=== PATIENT | female | born 1995 | race Caucasian/White ===

== ENCOUNTER → 2016-07-27 | Outpatient (REF) | payer BC | LOC: M SFHCWAGY 15:45 | PROVIDERS: ATTEND Nurse Practitioner Family | DX: Z12.4 Encounter for screening for malignant neoplasm of cervix (principal) ==

== ENCOUNTER → 2017-08-02 | Outpatient (REF) | payer BC ==
[2017-08-02 21:19] LABS: CHLAMYDIA DNA AMPLIFICATION NEGATIVE (NEGATIVE); GC DNA AMPLIFICATION NEGATIVE (NEGATIVE)
== END ==
LOC: M SFHCWAGY 15:32
DX: Z01.419 Encounter for gynecological examination (general) (routine) without abnormal findings (principal); R87.612 Low grade squamous intraepithelial lesion on cytologic smear of cervix (LGSIL)
CPT/HCPCS: 87591

== ENCOUNTER → 2018-02-21 | Outpatient (REF) | payer BC ==
[2018-02-21 21:14] LABS: CHLAMYDIA DNA AMPLIFICATION NEGATIVE (NEGATIVE); GC DNA AMPLIFICATION NEGATIVE (NEGATIVE)
[2018-02-22 11:20] LABS: HIV 1&2 SCREEN CENTAUR NEGATIVE (NEGATIVE)
== END ==
LOC: M SFHCWAGY 14:13
DX: Z11.4 Encounter for screening for human immunodeficiency virus [HIV] (principal); Z11.3 Encounter for screening for infections with a predominantly sexual mode of transmission
CPT/HCPCS: 36415

== ENCOUNTER → 2018-08-08 | Outpatient (REF) | payer BC ==
[2018-08-08 21:00] LABS: CHLAMYDIA DNA AMPLIFICATION NEGATIVE (NEGATIVE); GC DNA AMPLIFICATION NEGATIVE (NEGATIVE)
== END ==
LOC: M SFHCWAGY 15:25
PROVIDERS: ATTEND Nurse Practitioner Family
DX: Z12.4 Encounter for screening for malignant neoplasm of cervix (principal)
CPT/HCPCS: 87491; 87591; G0123

== ENCOUNTER → 2019-08-14 | Outpatient (REF) | payer BC | LOC: M SFHCWAGY 09:46 | PROVIDERS: ATTEND Nurse Practitioner Family | DX: Z12.4 Encounter for screening for malignant neoplasm of cervix (principal); R87.610 Atypical squamous cells of undetermined significance on cytologic smear of cervix (ASC-US) | CPT/HCPCS: 87624; G0123 ==

== ENCOUNTER → 2019-10-29 | Outpatient (REF) | payer BC | LOC: M LAB REF 18:29 | PROVIDERS: ATTEND Dermatology | DX: D22.121 Melanocytic nevi of left upper eyelid, including canthus (principal); D22.5 Melanocytic nevi of trunk ==

== ENCOUNTER → 2020-01-22 | Outpatient (REF) | payer BC ==
[2020-01-23 12:07] LABS: BLOOD UREA NITROGEN 13 MG/DL (7-18); CALCIUM LEVEL 8.9 MG/DL (8.5-10.1); CARBON DIOXIDE LEVEL 28 MEQ/L (21-32); CHLORIDE LEVEL 107 MEQ/L (98-107); GLOMERULAR FILTRATION RATE > 60.0 (>60); GLUCOSE, FASTING 104 MG/DL (70-100); POTASSIUM SERUM 4.2 MEQ/L (3.5-5.1); SODIUM LEVEL 141 MEQ/L (136-145)
== END ==
LOC: M SFHCCLAY 15:09
PROVIDERS: ATTEND Family Medicine
DX: F41.9 Anxiety disorder, unspecified (principal)

== ENCOUNTER → 2020-09-16 | Outpatient (REF) | payer BC | LOC: M SFHCWAGY 17:10 | PROVIDERS: ATTEND Nurse Practitioner Family | DX: Z12.4 Encounter for screening for malignant neoplasm of cervix (principal) ==

== ENCOUNTER 2021-02-22 08:02 | Emergency (ER) | payer BC, SELFPAY ==
[~2021-02-22] VITALS: Ht 170.2 cm; Wt 81.4 kg
[2021-02-22] MEDS ORDERED: PRENTAB53 PO (08:08)
[2021-02-22] MEDS ORDERED: FOLI400T13 PO (08:08)
[2021-02-22 09:44] LABS: BASO % 0.4 % (0.0-1.0); EOS # 0.1 10^3/uL (0.0-0.5); EOS % 0.9 % (0.0-3.0); HEMATOCRIT 40.4 % (36.0-47.0); HEMOGLOBIN 13.9 g/dl (12.0-15.5); LYMPH # 1.3 10^3/uL (1.5-5.0); LYMPH % 24.4 % (24.0-44.0); MEAN CORPUSCULAR HEMOGLOBIN 31.8 pg (27.0-33.0); MEAN CORPUSCULAR HGB CONC 34.4 g/dl (32.0-36.5); MEAN CORPUSCULAR VOLUME 92.4 fl (80.0-96.0); MONO # 0.4 10^3/uL (0.0-0.8); MONO % 6.8 % (2.0-8.0); NEUTROPHILS # 3.6 10^3/uL (1.5-8.5); NEUTROPHILS % 67.1 % (36.0-66.0); PLATELET COUNT, AUTOMATED 167 10^3/uL (150-450); RED BLOOD COUNT 4.37 10^6/uL (4.00-5.40); WHITE BLOOD COUNT 5.3 10^3/uL (4.0-10.0)
[2021-02-22 10:35] LABS: ALT/SGPT 22 U/L (12-78); BILIRUBIN,DIRECT 0.1 MG/DL (0.0-0.2); BILIRUBIN,TOTAL 0.4 MG/DL (0.2-1.0); BLOOD UREA NITROGEN 13 MG/DL (7-18); CALCIUM LEVEL 8.8 MG/DL (8.5-10.1); CARBON DIOXIDE LEVEL 27 MEQ/L (21-32); CHLORIDE LEVEL 107 MEQ/L (98-107); CREATININE FOR GFR 0.64 MG/DL (0.55-1.30); GLOMERULAR FILTRATION RATE > 60.0 (>60); GLUCOSE, FASTING 93 MG/DL (70-100); HCG, SERUM QUANTITATIVE 1098 MIU/ML; LIPASE 137 U/L (73-393); POTASSIUM SERUM 3.9 MEQ/L (3.5-5.1); SODIUM LEVEL 138 MEQ/L (136-145); TOTAL PROTEIN 7.4 GM/DL (6.4-8.2)
--- NOTE | 2021-02-22 11:47 | REP ---
INDICATION: pelvic pain into back, ro exctopic. COMPARISON: None. TECHNIQUE: Multiple sonographic images of the uterus and pelvis with transabdominal, endovaginal and Doppler ultrasound. FINDINGS: By LMP of 01/22/2021 the gestational age is 4 weeks 3 days. Patient reportedly has an hCG of 1096 units. The uterus is anteverted. There is a tiny 2.4 mm round hypoechogenic structure in the endometrial canal, possibly an early gestational sac. At this size the gestational age would be 4 weeks 5 days. Right ovary: The right ovary measures 2.4 x 1.7 x 1.3 cm and is normal size. There is no dominant mass or cyst. Left ovary: There is a slightly hypoechoic zone in the left ovary measuring 2.3 x 1.5 x 2.4 cm. There is a complex cystic zone within the left ovary measuring 2.3 x 1.7 x 1.9 cm. The left ovary is overall normal size measuring 3.5 x 2.3 x 3.1 cm. There is vascular flow in both ovaries with the Doppler resistive index of the parenchymal arteries in the right ovary measuring 0.51 left ovary 0.50. IMPRESSION: Questionable tiny intrauterine gestational sac as discussed above. There is no identifiable pole or yolk sac at this time. Follow-up is recommended. There are 2 complex cysts in the left ovary as described. A because the intrauterine gestation is only questionable at this time, ectopic gestation is not entirely excluded. Follow-up is recommended. <Electronically signed by Ry Jordan > 02/22/21 [id number]
[2021-02-22 13:02] VITALS: BP 95/52
== END 2021-02-22 13:06 | disposition home or self-care (01) ==
LOC: M ED 08:02
DX: O34.81 Maternal care for other abnormalities of pelvic organs, first trimester (principal); Z3A.01 Less than 8 weeks gestation of pregnancy

== ENCOUNTER → 2021-03-08 | Outpatient (CLI) | payer BC ==
[~2021-03-08] MED LIST: FOLI400T13 PO; PRENTAB53 PO
--- NOTE | 2021-03-08 08:43 | REP ---
INDICATION: 1ST TRIMESTER ABD PAIN COMPARISON: 02/22/2021 TECHNIQUE: Transabdominal 1st trimester obstetrical ultrasound with color Doppler evaluation. FINDINGS: Single live early intrauterine is appreciated. Gestational sac with yolk sac and pole identified. [place]-rump length of 5 mm corresponds to 6 weeks 1 day gestational age with estimated date of delivery 10/31/2021. heart rate equals 118 beats per minute. No gross abnormalities are identified. Maternal ovaries are normal in appearance and vascularity without evidence for torsion. IMPRESSION: Single live early intrauterine at 6 weeks 1 day gestational age. Complete anatomical assessment should be performed and 19-20 weeks. <Electronically signed by Ajit Ivey > 03/08/21 [id number]
== END ==
LOC: M RAD 07:34
PROVIDERS: ATTEND Physician Assistant Medical
DX: O26.899 Other specified pregnancy related conditions, unspecified trimester (principal); Z3A.01 Less than 8 weeks gestation of pregnancy

== ENCOUNTER → 2021-04-22 | Outpatient (CLI) | payer BC | LOC: M LAB 12:10 | PROVIDERS: ATTEND Advanced Practice Midwife | DX: Z34.81 Encounter for supervision of other normal pregnancy, first trimester (principal); Z36.89 Encounter for other specified antenatal screening ==

== ENCOUNTER → 2021-04-22 | Outpatient (CLI) | payer BC ==
[2021-04-22 13:52] LABS: HEMOGLOBIN 12.9 g/dl (12.0-15.5); MEAN CORPUSCULAR HEMOGLOBIN 31.9 pg (27.0-33.0); MEAN CORPUSCULAR HGB CONC 33.9 g/dl (32.0-36.5); MEAN CORPUSCULAR VOLUME 93.8 fl (80.0-96.0); PLATELET COUNT, AUTOMATED 176 10^3/uL (150-450); RED BLOOD COUNT 4.05 10^6/uL (4.00-5.40); WHITE BLOOD COUNT 8.7 10^3/uL (4.0-10.0)
[2021-04-22 15:38] LABS: GC DNA AMPLIFICATION NEGATIVE (NEGATIVE)
[2021-04-22 15:58] LABS: HIV 1&2 SCREEN CENTAUR NEGATIVE (NEGATIVE)
== END ==
LOC: M LAB 12:06
PROVIDERS: ATTEND Advanced Practice Midwife
DX: Z34.01 Encounter for supervision of normal first pregnancy, first trimester (principal); Z36.89 Encounter for other specified antenatal screening

== ENCOUNTER → 2021-06-16 | Outpatient (CLI) | payer BC ==
--- NOTE | 2021-06-16 09:05 | REP ---
INDICATION: ANATOMY COMPARISON: 03/08/2021 TECHNIQUE: Transabdominal obstetrical ultrasound with color Doppler evaluation. FINDINGS: Examination demonstrates a single live intrauterine in cephalic presentation. motion is identified by technologist. Placenta is noted anterior and grade 1 without evidence for placenta previa or abruption. Amniotic fluid volume is normal. Cervix measures 3.6 cm in length and appears closed.. Selected gestational age: 20 weeks 5 days with NIA 10/29/2021. Gestational age by current measurements 21 weeks 4 days with NIA 10/23/2021. FHR equals 136 beats per minute. BPD: 5.0 cm; 21 weeks 2 days; 65th percentile HC: 19.3 cm; 21 weeks 4 days; 74th percentile AC: 16.4 cm; 21 weeks 3 days; 65th percentile FL: 3.5 cm; 21 weeks 1 day; 62nd percentile HL: 3.6 cm; 22 weeks 3 days; 78th percentile HC/AC: 1.18 Estimated weight 417 grams (78thpercentile). Anatomical assessment demonstrates normal structures including cranium, choroid plexus, cavum, cerebellum/posterior fossa, facial features, lungs, four-chamber heart/ventricular outflow tracts, diaphragm, stomach, cord insertion/three-vessel cord, kidneys/bladder, spine, and extremities. IMPRESSION: Single live intrauterine in cephalic presentation demonstrating appropriate estimated weight. Anatomical assessment is complete and normal. <Electronically signed by Ajit Ivey > 06/16/21 [id number]
== END ==
LOC: M WHC 07:02
PROVIDERS: ATTEND Advanced Practice Midwife
DX: Z34.02 Encounter for supervision of normal first pregnancy, second trimester (principal); Z36.89 Encounter for other specified antenatal screening; Z3A.20 20 weeks gestation of pregnancy

== ENCOUNTER → 2021-07-28 | Outpatient (CLI) | payer BC ==
[2021-07-28 17:12] LABS: HEMATOCRIT 36.4 % (36.0-47.0); HEMOGLOBIN 12.3 g/dl (12.0-15.5); MEAN CORPUSCULAR HEMOGLOBIN 32.8 pg (27.0-33.0); MEAN CORPUSCULAR HGB CONC 33.8 g/dl (32.0-36.5); MEAN CORPUSCULAR VOLUME 97.1 fl (80.0-96.0); PLATELET COUNT, AUTOMATED 149 10^3/uL (150-450); RED BLOOD COUNT 3.75 10^6/uL (4.00-5.40); WHITE BLOOD COUNT 8.5 10^3/uL (4.0-10.0)
== END ==
LOC: M PLALAB 14:21
PROVIDERS: ATTEND Advanced Practice Midwife
DX: Z34.02 Encounter for supervision of normal first pregnancy, second trimester (principal); Z36.89 Encounter for other specified antenatal screening
CPT/HCPCS: 36415; 82950; 85027; 86850; 86900; 86901; J2790

== ENCOUNTER → 2021-10-07 | Outpatient (REF) | payer BC | LOC: M PLALAB 08:01 | PROVIDERS: ATTEND Advanced Practice Midwife | DX: Z36.85 Encounter for antenatal screening for Streptococcus B (principal) ==

== ENCOUNTER → 2021-10-13 | Outpatient (CLI) | payer BC | LOC: M RAD 12:12 | PROVIDERS: ATTEND Advanced Practice Midwife | DX: O26.843 Uterine size-date discrepancy, third trimester (principal); Z3A.37 37 weeks gestation of pregnancy; O36.63X0 Maternal care for excessive fetal growth, third trimester, not applicable or unspecified ==

== ENCOUNTER → 2022-05-01 | Outpatient (CLI) | payer BC ==
[~2022-05-01] MED LIST changes: +COLA100C5 PO; +ECOT81TA5 PO; +IBUP80TA PO; +PERCOCET PO
== END ==
LOC: M CLY 14:52
PROVIDERS: ATTEND Physician Assistant
DX: M53.3 Sacrococcygeal disorders, not elsewhere classified (principal)

== ENCOUNTER → 2022-09-04 | Outpatient (CLI) | payer BC ==
[2022-09-04 15:51] LABS: HEMATOCRIT 42.7 % (36.0-47.0); HEMOGLOBIN 14.5 g/dl (12.0-15.5); MEAN CORPUSCULAR HEMOGLOBIN 30.6 pg (27.0-33.0); MEAN CORPUSCULAR VOLUME 90.1 fl (80.0-96.0); PLATELET COUNT, AUTOMATED 159 10^3/uL (150-450); RED BLOOD COUNT 4.74 10^6/uL (4.00-5.40)
[2022-09-04 16:30] LABS: ALKALINE PHOSPHATASE 95 U/L (46-116); ALT/SGPT 20 U/L (7.0-40); AST/SGOT 14 U/L (<34); BILIRUBIN,TOTAL 0.7 MG/DL (0.3-1.2); BLOOD UREA NITROGEN 15 MG/DL (9-23); CALCIUM LEVEL 8.8 MG/DL (8.5-10.1); CARBON DIOXIDE LEVEL 30 MMOL/L (20-31); CHLORIDE LEVEL 106 MMOL/L (98-107); CHOLESTEROL LEVEL 188 MG/DL (<200); CHOLESTEROL RISK RATIO 5.31 (<5); CREATININE FOR GFR 0.78 MG/DL (0.55-1.30); GLOMERULAR FILTRATION RATE > 60.0 (>60); GLUCOSE, FASTING 113 MG/DL (60-100); HDL CHOLESTEROL 35.4 MG/DL (>40); LDL CHOLESTEROL 112.4 MG/DL (<100); NON-HDL-C 153 MG/DL; POTASSIUM SERUM 3.7 MMOL/L (3.5-5.1); SODIUM LEVEL 139 MMOL/L (136-145); TOTAL PROTEIN 7.3 G/DL (5.7-8.2); TRIGLYCERIDES LEVEL 201 MG/DL (<150)
[2022-09-04 16:31] LABS: FREE T4 1.01 NG/DL (0.89-1.76); THYROID STIMULATING HORMONE 0.574 uIU/ML (0.55-4.78)
== END ==
LOC: M PLALAB 13:32
PROVIDERS: ATTEND Family Medicine
DX: Z00.00 Encounter for general adult medical examination without abnormal findings (principal)

== ENCOUNTER → 2023-02-14 | Outpatient (REF) | payer BC | LOC: M SFHCWAGY 17:33 | PROVIDERS: ATTEND Nurse Practitioner Family | DX: Z12.4 Encounter for screening for malignant neoplasm of cervix (principal) ==

== ENCOUNTER → 2023-05-02 | Outpatient (CLI) | payer BC ==
[2023-05-02 10:25] LABS: HEMATOCRIT 38.5 % (36.0-47.0); HEMOGLOBIN 13.4 g/dl (12.0-15.5); MEAN CORPUSCULAR HEMOGLOBIN 32.1 pg (27.0-33.0); MEAN CORPUSCULAR HGB CONC 34.8 g/dl (32.0-36.5); MEAN CORPUSCULAR VOLUME 92.3 fl (80.0-96.0); PLATELET COUNT, AUTOMATED 187 10^3/uL (150-450); RED BLOOD COUNT 4.17 10^6/uL (4.00-5.40); WHITE BLOOD COUNT 8.5 10^3/uL (4.0-10.0)
[2023-05-02 13:08] LABS: GC DNA AMPLIFICATION NEGATIVE (NEGATIVE)
[2023-05-02 19:05] LABS: HIV 1&2 SCREEN NEGATIVE (NEGATIVE)
[2023-05-02 19:13] LABS: HEPATITIS C VIRUS ABY INDEX 0.05 INDEX (<0.8)
== END ==
LOC: M LAB 09:23
PROVIDERS: ATTEND Specialist
DX: Z34.81 Encounter for supervision of other normal pregnancy, first trimester (principal)

== ENCOUNTER → 2023-05-18 | Outpatient (CLI) | payer BC | LOC: M PLALAB 15:48 | PROVIDERS: ATTEND Specialist | DX: Z34.01 Encounter for supervision of normal first pregnancy, first trimester (principal) ==

== ENCOUNTER → 2023-07-11 | Outpatient (CLI) | payer BC | LOC: M WHC 11:02 | PROVIDERS: ATTEND Obstetrics & Gynecology | DX: O30.032 Twin pregnancy, monochorionic/diamniotic, second trimester (principal); O32.1XX1 Maternal care for breech presentation, fetus 1; O32.1XX2 Maternal care for breech presentation, fetus 2; Z3A.18 18 weeks gestation of pregnancy ==

== ENCOUNTER → 2023-08-22 | Outpatient (CLI) | payer BC | LOC: M WHC 13:27 | PROVIDERS: ATTEND Specialist | DX: O30.032 Twin pregnancy, monochorionic/diamniotic, second trimester (principal); Z3A.25 25 weeks gestation of pregnancy ==

== ENCOUNTER → 2023-08-22 | Outpatient (CLI) | payer BC ==
[2023-08-22 17:15] LABS: HEMATOCRIT 35.9 % (36.0-47.0); HEMOGLOBIN 12.1 g/dl (12.0-15.5); MEAN CORPUSCULAR HEMOGLOBIN 32.9 pg (27.0-33.0); MEAN CORPUSCULAR HGB CONC 33.7 g/dl (32.0-36.5); MEAN CORPUSCULAR VOLUME 97.6 fl (80.0-96.0); PLATELET COUNT, AUTOMATED 159 10^3/uL (150-450); RED BLOOD COUNT 3.68 10^6/uL (4.00-5.40); WHITE BLOOD COUNT 8.7 10^3/uL (4.0-10.0)
[2023-08-22 18:48] LABS: CHLAMYDIA DNA AMPLIFICATION NEGATIVE (NEGATIVE); GC DNA AMPLIFICATION NEGATIVE (NEGATIVE)
== END ==
LOC: M PLALAB 14:13
PROVIDERS: ATTEND Specialist
DX: O30.032 Twin pregnancy, monochorionic/diamniotic, second trimester (principal)
CPT/HCPCS: 36415; 82950; 85027; 86850; 86900; 86901; 87810; 87850; J2790

== ENCOUNTER 2023-09-06 08:21 | Outpatient (CLI) | payer BC ==
[~2023-09-06] VITALS: Ht 170.2 cm; Wt 105.8 kg
[2023-09-06] MEDS ORDERED: ACET-897 PO (08:42)
[2023-09-06] MEDS ORDERED: HOME MED LIST COMPLETE! XX SCH (08:45)
[2023-09-06 09:02] VITALS: BP 100/53; O2SAT 97
== END 2023-09-06 10:15 | disposition home or self-care (01) ==
LOC: M LDO 08:21
PROVIDERS: ATTEND Obstetrics & Gynecology
DX: O26.892 Other specified pregnancy related conditions, second trimester (principal); N89.8 Other specified noninflammatory disorders of vagina; O30.032 Twin pregnancy, monochorionic/diamniotic, second trimester; O32.1XX1 Maternal care for breech presentation, fetus 1; Z3A.27 27 weeks gestation of pregnancy
CPT/HCPCS: 59025; 76815; G0463

== ENCOUNTER → 2023-09-19 | Outpatient (CLI) | payer BC ==
[~2023-09-19] MED LIST changes: +ACET-897 PO
== END ==
LOC: M RAD 12:55
PROVIDERS: ATTEND Specialist
DX: O30.033 Twin pregnancy, monochorionic/diamniotic, third trimester (principal); Z3A.28 28 weeks gestation of pregnancy

== ENCOUNTER → 2023-10-09 | Outpatient (CLI) | payer BC | LOC: M RAD 13:10 | PROVIDERS: ATTEND Obstetrics & Gynecology | DX: O30.033 Twin pregnancy, monochorionic/diamniotic, third trimester (principal); Z3A.31 31 weeks gestation of pregnancy ==

== ENCOUNTER → 2023-10-18 | Outpatient (CLI) | payer BC | LOC: M WHC 14:09 | PROVIDERS: ATTEND Obstetrics & Gynecology | DX: O30.033 Twin pregnancy, monochorionic/diamniotic, third trimester (principal); Z3A.33 33 weeks gestation of pregnancy ==

== ENCOUNTER → 2023-10-24 | Outpatient (REF) | payer BC | LOC: M SFHCWAGY 15:01 | PROVIDERS: ATTEND Specialist | DX: O30.033 Twin pregnancy, monochorionic/diamniotic, third trimester (principal) ==

== ENCOUNTER → 2023-11-02 | Outpatient (CLI) | payer BC ==
[~2023-11-02] MED LIST changes: +METF500T13 PO
== END ==
LOC: M RAD 14:14
PROVIDERS: ATTEND Obstetrics & Gynecology
DX: O30.033 Twin pregnancy, monochorionic/diamniotic, third trimester (principal); Z3A.35 35 weeks gestation of pregnancy

== ENCOUNTER → 2023-11-09 | Outpatient (REF) | payer BC | LOC: M LAB REF 11:50 | PROVIDERS: ATTEND Physician Assistant | DX: B34.9 Viral infection, unspecified (principal) ==

== ENCOUNTER 2023-11-13 20:44 | Inpatient (IN) | payer BC ==
[~2023-11-13] VITALS: Ht 170.2 cm; Wt 113.4 kg
[2023-11-13] MEDS: ceFAZolin SOD 2 GM in IV 1 EA IV STA (21:02)
[2023-11-13] MEDS ORDERED: OXYTOCIN DRIP 30 UNITS in IV 1 EA IV PRN (21:05)
[2023-11-13] MEDS ORDERED: METHYLERGONOVINE MALEATE 0.2MG/ML 1ML VIAL IM PRN (21:05)
[2023-11-13] MEDS ORDERED: CARBOPROST TROMETHAMINE 250 MCG/ML AMP IM PRN (21:05)
[2023-11-13] MEDS ORDERED: LR 1,000 ML IV SCH ×2 (21:05→23:25)
[2023-11-13] MEDS ORDERED: TRANEXAMIC ACID INJection 1,000 MG in NS 100 ML IV PRN (21:05)
[2023-11-13 21:06] VITALS: BP 138/80
[2023-11-13] MEDS: LACTATED RINGER'S 1000 ML IV STA (21:11)
[2023-11-13] MEDS ORDERED: MORPHINE PRES-FREE INJ 10 MG/10 ML VIAL As Ordered ONE (21:26)
[2023-11-13 21:29] LABS: HEMATOCRIT 32.6 % (36.0-47.0); HEMOGLOBIN 10.7 g/dl (12.0-15.5); MEAN CORPUSCULAR HEMOGLOBIN 28.9 pg (27.0-33.0); MEAN CORPUSCULAR HGB CONC 32.8 g/dl (32.0-36.5); MEAN CORPUSCULAR VOLUME 88.1 fl (80.0-96.0); PLATELET COUNT, AUTOMATED 183 10^3/uL (150-450); WHITE BLOOD COUNT 7.3 10^3/uL (4.0-10.0)
[2023-11-13] MEDS ORDERED: ONDANSETRON 4MG 2ML VIAL As Ordered ONE (21:29)
[2023-11-13] MEDS: BICITRA 30ML SOLN UDC PO ONE (21:31)
[2023-11-13] MEDS ORDERED: AZITHROMYCIN INJ 500MG VIAL As Ordered ONE (22:13)
[2023-11-13 22:22] LABS: HEPATITIS C VIRUS ABY INDEX < 0.02 INDEX (<0.8)
[2023-11-13] MEDS ORDERED: LIDOCAINE 2% INJ 100 MG/5 ML SYRINGE As Ordered ONE (22:32)
[2023-11-13] MEDS ORDERED: PHENYLephrine 500MCG 5ML (100MCG/ML) SYRINGE As Ordered ONE (22:32)
[2023-11-13] MEDS ORDERED: ePHEDrine SULFATE 25 MG/5 ML(5MG/ML) SYRINGE As Ordered ONE (22:32)
[2023-11-13] MEDS ORDERED: ACETAMINOPHEN 1000MG 100ML IV BAG As Ordered ONE (22:37)
[2023-11-13] MEDS ORDERED: OXYTOCIN 30UNITS IN 0.9% NaCl 500ML IV BAG As Ordered ONE (22:41)
[2023-11-13] MEDS ORDERED: KETOROLAC 60MG 2ML VIAL As Ordered ONE (22:56)
[2023-11-13] MEDS ORDERED: AZITHROMYCIN INJ 500 MG, VIAL MATE ADAPTER 1 EACH in NS 250 ML IV ONE (23:00)
[2023-11-13] MEDS: OXYTOCIN DRIP 30 UNITS in IV 1 EA IV SCH (23:15)
[2023-11-13] MEDS ORDERED: NALOXONE INJ 0.4MG/1ML VIAL IV PRN ×2 (23:25)
[2023-11-13] MEDS ORDERED: METOCLOPRAMIDE INJ 10MG/2ML VIAL IV PRN (23:25)
[2023-11-13] MEDS ORDERED: **NOTE PATIENT COMMENT** MISC XX SCH (23:25)
[2023-11-13] MEDS ORDERED: ONDANSETRON 4MG 2ML VIAL IV PRN (23:25)
[2023-11-13] MEDS ORDERED: fentaNYL 100 MCG/2 ML INJECTION IV PRN (23:25)
[2023-11-13] MEDS ORDERED: diphenhydrAMINE 50MG/ML VIAL IV PRN (23:25)
[2023-11-13] MEDS ORDERED: oxyCODONE 5MG TAB PO PRN (23:25)
[2023-11-13] MEDS ORDERED: SLF 3 ML SYR IV SCH (23:25)
[2023-11-13] MEDS ORDERED: DOCUSATE SODIUM 100MG CAPSULE PO PRN (23:30)
[2023-11-13] MEDS ORDERED: SIMETHICONE 80MG CHEW TAB PO PRN (23:30)
[2023-11-14] VITALS (11 sets, daily range): BP systolic 101–136; BP diastolic 55–82; TEMP 97.3; O2SAT 93–98
[2023-11-14] MEDS ORDERED: OXYC-517 PO (00:06)
[2023-11-14] MEDS ORDERED: ACET-683 PO (00:06)
[2023-11-14] MEDS ORDERED: COLA100C5 PO (00:06)
[2023-11-14] MEDS ORDERED: IBUP-1022 PO (00:06)
[2023-11-14] MEDS: ONDANSETRON 4MG 2ML VIAL IV PRN (03:20)
[2023-11-14] MEDS: ACETAMINOPHEN 500 MG TAB PO SCH (05:00)
[2023-11-14] MEDS: KETOROLAC 30 MG/ML 1ML VIAL IV SCH (05:18)
[2023-11-14 07:10] LABS: HEMOGLOBIN 9.3 g/dl (12.0-15.5); MEAN CORPUSCULAR HEMOGLOBIN 28.9 pg (27.0-33.0); MEAN CORPUSCULAR HGB CONC 33.2 g/dl (32.0-36.5); PLATELET COUNT, AUTOMATED 158 10^3/uL (150-450); RED BLOOD COUNT 3.22 10^6/uL (4.00-5.40); WHITE BLOOD COUNT 13.2 10^3/uL (4.0-10.0)
[2023-11-14] MEDS ORDERED: ONDANSETRON 4MG 2ML VIAL IV PRN ×2 (07:50→11:00)
[2023-11-14] MEDS: PRENATAL VITAMINS CHEWABLE TABLET PO SCH (08:00)
[2023-11-14] MEDS: METOCLOPRAMIDE INJ 10MG/2ML VIAL IV PRN (08:20)
[2023-11-14] MEDS: LR 500 ML IV ONE (12:18)
[2023-11-15] MEDS: IBUPROFEN 600MG TAB PO SCH (01:34)
[2023-11-15] MEDS: diphenhydrAMINE 50MG CAP PO ONE (01:35)
[2023-11-15 02:00] VITALS: BP 142/73; O2SAT 96
[2023-11-15] MEDS: oxyCODONE 5MG TAB PO PRN ×2 (02:28→09:13)
[2023-11-15 06:00] VITALS: BP 134/74; O2SAT 97
[2023-11-15] MEDS: MEASLES,MUMPS,RUBELLA VACCINE INJ (MMR-II) SC.IMMUN ONE (07:28)
[2023-11-15 10:00] VITALS: BP 149/72; O2SAT 97
[2023-11-15] MEDS: RHO(D) IMMUNE GLOBULIN/MALTOSE 500MCG(2500IU)/2.2ML VIAL (WINRHO) IM SCH (13:23)
[2023-11-15 14:00] VITALS: BP 174/78; O2SAT 99
[2023-11-15 14:16] VITALS: BP 150/88
[2023-11-15 17:47] VITALS: BP 141/73; O2SAT 98
== END 2023-11-16 13:18 | disposition home or self-care (01) | DRG 540 ==
LOC: M LDO 20:44 → M LDI 20:59 → M OBS 11-14 00:50
PROVIDERS: ADMIT Obstetrics & Gynecology; ATTEND Obstetrics & Gynecology
PROC: 10D00Z1 Extraction of Products of Conception, Low, Open Approach (ICD-10-PCS; principal; 2023-11-13 21:02)
DX: O60.14X0 Preterm labor third trimester with preterm delivery third trimester, not applicable or unspecified (principal); O30.033 Twin pregnancy, monochorionic/diamniotic, third trimester; Z37.2 Twins, both liveborn; O24.425 Gestational diabetes mellitus in childbirth, controlled by oral hypoglycemic drugs; O13.4 Gestational [pregnancy-induced] hypertension without significant proteinuria, complicating childbirth; O34.211 Maternal care for low transverse scar from previous cesarean delivery; Z3A.36 36 weeks gestation of pregnancy; Z79.899 Other long term (current) drug therapy

== ENCOUNTER → 2023-12-26 | Outpatient (CLI) | payer BC ==
[~2023-12-26] MED LIST changes: +ACET-683 PO; +GASTROGRAFIN SOLUTION 30ML As Ordered ONE; +IBUP-1022 PO; +ISOVUE-370 76% 100ML VIAL As Ordered ONE; +OXYC-517 PO
== END ==
LOC: M RAD 12:45
PROVIDERS: ATTEND Nurse Practitioner Family
DX: K42.9 Umbilical hernia without obstruction or gangrene (principal); J98.11 Atelectasis; R16.2 Hepatomegaly with splenomegaly, not elsewhere classified; K57.30 Diverticulosis of large intestine without perforation or abscess without bleeding
CPT/HCPCS: 74177; Q9963; Q9967

== ENCOUNTER → 2024-04-08 | Outpatient (REF) | payer BC ==
[~2024-04-08] MED LIST changes: -GASTROGRAFIN SOLUTION 30ML As Ordered ONE; -ISOVUE-370 76% 100ML VIAL As Ordered ONE
== END ==
LOC: M SFHCCLAY 15:32
PROVIDERS: ATTEND Nurse Practitioner Family
DX: O24.419 Gestational diabetes mellitus in pregnancy, unspecified control (principal); R53.83 Other fatigue; R63.5 Abnormal weight gain

== ENCOUNTER → 2024-05-26 | Outpatient (CLI) | payer BC | LOC: M CLY 08:19 | PROVIDERS: ATTEND Nurse Practitioner Family | DX: M25.551 Pain in right hip (principal); M16.11 Unilateral primary osteoarthritis, right hip ==

== ENCOUNTER → 2024-07-08 | Outpatient (CLI) | payer BC | LOC: M RAD 06:13 | PROVIDERS: ATTEND Orthopaedic Surgery | DX: M25.551 Pain in right hip (principal); M25.451 Effusion, right hip ==

== ENCOUNTER → 2025-04-28 | Outpatient (REF) | payer BC ==
[~2025-04-28] MED LIST changes: -IBUP-1022 PO; +IBUP600T42 PO
[2025-04-28 17:40] LABS: ESTIMATED AVERAGE GLUCOSE 103.0 MG/DL (60-110)
[2025-04-28 17:55] LABS: ALT/SGPT 16 U/L (7.0-40); AST/SGOT 12 U/L (<34); CALCIUM LEVEL 8.9 MG/DL (8.5-10.1); CARBON DIOXIDE LEVEL 31 MMOL/L (20-31); CHLORIDE LEVEL 104 MMOL/L (98-107); CHOLESTEROL LEVEL 171 MG/DL (<200); CHOLESTEROL RISK RATIO 4.43 (<5); CREATININE FOR GFR 0.79 MG/DL (0.55-1.30); GLOMERULAR FILTRATION RATE > 90.0 (>60); LDL CHOLESTEROL 102.4 MG/DL (<100); NON-HDL-C 132.4 MG/DL; POTASSIUM SERUM 4.3 MMOL/L (3.5-5.1); SODIUM LEVEL 142 MMOL/L (136-145); TRIGLYCERIDES LEVEL 150 MG/DL (<150)
== END ==
LOC: M SFHCCLAY 14:31
PROVIDERS: ATTEND Nurse Practitioner Family
DX: R63.5 Abnormal weight gain (principal); F41.9 Anxiety disorder, unspecified; O24.419 Gestational diabetes mellitus in pregnancy, unspecified control